=== PATIENT | male | born 1965 ===

== ENCOUNTER → 2020-08-15 07:47 | Outpatient (REF) | payer OTHER, SELFPAY | LOC: ANHLAB 07:47 | PROVIDERS: Visit Provider Nurse Practitioner | DX: C44.319 Basal cell carcinoma of skin of other parts of face (principal) | CPT/HCPCS: 88305; 88331 ==

== ENCOUNTER 2022-06-11 14:15 | Outpatient (NON) | payer OTHER, SELFPAY | END 2022-06-11 14:16 | disposition home or self-care (01) | PROVIDERS: Visit Provider Nurse Practitioner | DX: C44.311 Basal cell carcinoma of skin of nose (principal) | CPT/HCPCS: 88305; 88331 ==

== ENCOUNTER 2022-08-13 13:59 | Outpatient (NON) | payer OTHER, SELFPAY | END 2022-08-13 14:00 | disposition home or self-care (01) | LOC: ANHLAB 14:00 | PROVIDERS: Visit Provider Nurse Practitioner | DX: C44.319 Basal cell carcinoma of skin of other parts of face (principal) | CPT/HCPCS: 88305; 88331 ==